=== PATIENT | female | born 1965 | race African-American/Black ===

== ENCOUNTER 2019-09-02 14:32 | Inpatient (IN) | payer BC ==
[2019-09-02] VITALS (9 sets, daily range): BP systolic 91–150; BP diastolic 46–88
[~2019-09-02] VITALS: Ht 160 cm; Wt 70.4 kg
[2019-09-02] MEDS ORDERED: morphine 4 MG/ML inj SYRINge IV ONE (15:40)
[2019-09-02] MEDS ORDERED: ondansetron/PF 4mg/2ml inj IV ONE ×2 (15:40→20:00)
[2019-09-02] MEDS ORDERED: piperacillin/tazo 4.5gm/100ml 100 ML IV ONE (16:00)
[2019-09-02] MEDS ORDERED: piperacillin/tazo 4.5gm/100ml 100 ML IV SCH (16:00)
[2019-09-02 16:29] LABS: BASOPHILS % (AUTO) 0.4 % (0-1); EOSINOPHILS # (AUTO) 0.1 X10'3 (0-0.9); EOSINOPHILS % (AUTO) 0.8 % (0-6); HEMATOCRIT 38.8 % (35.0-45.0); LYMPHOCYTES # (AUTO) 1.6 X10'3 (1.1-4.8); LYMPHOCYTES % (AUTO) 17.9 % (21-51); MEAN CORPUSCULAR HEMOGLOBIN 28.4 PG (27.0-31.0); MEAN CORPUSCULAR HGB CONC 33.6 g/dL (33.0-36.5); MEAN CORPUSCULAR VOLUME 84.6 FL (78-98); MEAN PLATELET VOLUME 10.2 FL (7.4-10.4); MONOCYTES # (AUTO) 1.1 X10'3 (0-0.9); NEUTROPHILS # (AUTO) 6.2 X10'3 (1.8-7.7); NEUTROPHILS % (AUTO) 68.9 % (42-75); PLATELET COUNT 227 X10'3 (140-440); RED BLOOD COUNT 4.59 X10'6 (4.20-5.60); RED CELL DISTRIBUTION WIDTH 13.7 % (11.5-14.5)
[2019-09-02 16:38] LABS: ALANINE AMINOTRANSFERASE 43 U/L (12-78); ALBUMIN 3.4 G/DL (3.4-5.0); ALBUMIN/GLOBULIN RATIO 0.8 (1.1-1.5); ALKALINE PHOSPHATASE 102 IU/L (46-116); AMYLASE 35 U/L (25-115); ANION GAP 5 (8-16); ASPARTATE AMINO TRANSFERASE 47 U/L (10-37); BILIRUBIN,TOTAL 0.4 MG/DL (0.1-1.0); BLOOD UREA NITROGEN 5 MG/DL (7-18); BUN/CREATININE RATIO 6.9 (6.6-38.0); CALCIUM 8.9 MG/DL (8.5-10.1); CHLORIDE 99 MMOL/L (99-107); CREATININE 0.72 MG/DL (0.40-0.90); GLUCOSE 109 MG/DL (70-104); LIPASE 68 U/L (73-393); POTASSIUM 3.6 MMOL/L (3.5-5.1); SODIUM 136 MMOL/L (135-145); TOTAL CARBON DIOXIDE 32.5 MMOL/L (24-32); TOTAL PROTEIN 7.8 G/DL (6.4-8.2); eGFR 84 ML/MIN
[2019-09-02] MEDS ORDERED: NO HOME MEDS PO (16:58)
[2019-09-02] MEDS ORDERED: BUPIVAcaine/PF 2.5 mg/ml (0.25%) 30ml vial ONE (17:16)
[2019-09-02] MEDS ORDERED: ceFAZolin 1000mg inj ONE (17:16)
[2019-09-02] MEDS ORDERED: bisacodyl 10mg suppository rectal RC PRN (17:35)
[2019-09-02] MEDS ORDERED: magnesium Cl slow-release 64mg tablet PO PRN (17:35)
[2019-09-02] MEDS ORDERED: acetaminophen 325mg tablet PO PRN ×2 (17:35)
[2019-09-02] MEDS ORDERED: magnesium 2GM in 50ml NS 50 ML IV PRN (17:35)
[2019-09-02] MEDS ORDERED: potassium Cl 20 mEq SR tablet PO PRN ×2 (17:35)
[2019-09-02] MEDS ORDERED: HYDROcodone/acetaminophen 5mg/325mg tablet PO PRN (17:35)
[2019-09-02] MEDS ORDERED: HYDROmorphone 1 mg/ml syringe IV PRN (17:35)
[2019-09-02] MEDS ORDERED: HYDROmorphone inj. 0.5 MG/0.5 ML DISP.SYRIN IV PRN (17:35)
[2019-09-02] MEDS ORDERED: ondansetron/PF 4mg/2ml inj IV PRN ×2 (17:35→17:45)
[2019-09-02] MEDS ORDERED: magnesium 4gm in 100ml NS 100 ML IV PRN (17:35)
[2019-09-02] MEDS ORDERED: HYDROcodone/acetaminophen 10/325mg tab PO PRN (17:35)
[2019-09-02] MEDS ORDERED: mag hydrox/Alum hydrox/simeth 30ml oral suspension PO PRN (17:35)
[2019-09-02] MEDS ORDERED: diphenhydrAMINE 50 mg/ml inj IV PRN (17:35)
[2019-09-02] MEDS ORDERED: metoclopramide 5 mg/ml inj IV PRN (17:35)
[2019-09-02] MEDS ORDERED: potassium CL 10mEq/100ml bag 100 ML IV PRN ×2 (17:35)
[2019-09-02] MEDS: piperacillin/tazo 3.375gm/50ml 50 ML IV SCH (17:35)
[2019-09-02] MEDS ORDERED: diphenhydrAMINE 25mg capsule PO PRN (17:35)
[2019-09-02] MEDS ORDERED: magnesium hydroxide 30ml (MOM) UD suspension PO PRN (17:35)
--- NOTE | 2019-09-02 17:35 | NUR ---
TO SURGERY PER TODD WITH ER TECHS, IN GOOD CONDITION, ACCOMPANIED BY FAMILY.
[2019-09-02] MEDS ORDERED: ringers solution, lacted 1,000 ML IV SCH (17:42)
[2019-09-02] MEDS ORDERED: proCHLORperazine 10 MG/2 ml inj IV PRN (17:45)
[2019-09-02] MEDS ORDERED: meperidine/PF 25mg/ml syringe IV PRN ×3 (17:45)
[2019-09-02] MEDS ORDERED: morphine 4 MG/ML inj SYRINge IV PRN ×2 (17:45)
[2019-09-02] MEDS ORDERED: sevoflurane 250ml liquid IH ONE (18:07)
[2019-09-02] MEDS ORDERED: labetalol 20mg/4ml (5mg/ml) syringe IV ONE (18:07)
[2019-09-02] MEDS ORDERED: ceFOXitin 2 GM ADDVANTGE BAG 50 ML IV ONE (18:11)
[2019-09-02] MEDS ORDERED: fentaNYL/PF 50MCG/1 ML 2ML syringe ONE (18:13)
[2019-09-02] MEDS ORDERED: midazolam 2 mg/2 ml injection ONE (18:22)
[2019-09-02] MEDS ORDERED: glycopyrrolate 0.2mg/ml inj ONE (18:58)
[2019-09-02] MEDS ORDERED: propofol inj 20 ML IV ONE (18:58)
[2019-09-02] MEDS ORDERED: dexamethasone sod phosphate 4mg/ml inj. ONE (18:58)
[2019-09-02] MEDS ORDERED: phenylephrine 10mg/ml inj. ONE (18:58)
[2019-09-02] MEDS ORDERED: LIDOcaine 2% (20mg/ml) 5ml vial ONE (18:58)
[2019-09-02] MEDS ORDERED: neostigmine methylsulfate 1 MG/ML 10ml vial ONE (18:58)
[2019-09-02] MEDS ORDERED: ondansetron/PF 4mg/2ml inj ONE (18:58)
[2019-09-02] MEDS ORDERED: rocuronium 10mg/ml inj IV ONE (18:58)
[2019-09-02] MEDS ORDERED: meperidine/PF 50mg/ml syringe ONE (19:05)
--- NOTE | 2019-09-02 19:16 | NUR ---
Received from OR via surgical bed, accompanied by Anesthesiologist Truong and report given by Anesthesiolgist. Lap sites with bandaids CDI. VS stable, O2 mask at 10L sats 100%. Pt responding to some questions. SCDs on. BLL.
[2019-09-02] MEDS: docusate sod 100mg capsule PO SCH (20:00)
[2019-09-02] MEDS: K and/or MAG REPLACEMENT MC SCH (20:00)
--- NOTE | 2019-09-02 20:06 | NUR ---
Report called to receiving nurse. Transferred via surgical bed. Belongings on bed with patient. Sofia STILES receiving nurse present at bedside. Special Issues communicated to receiving nurse. Lap sites remain CDI. Pt responsive, post op VS stable.
[2019-09-02] MEDS: ringers solution, lacted 1,000 ML IV SCH (20:16)
[2019-09-02] MEDS: HYDROmorphone/NS 1 mg/ml CADD 50 ML IV SCH ×3 (20:22→23:00)
[2019-09-02] MEDS ORDERED: temazepam 15mg capsule PO PRN (21:00)
[2019-09-02] MEDS: ceFOXitin 1 GM/D5W 50mL IVPB 50 ML IV SCH (22:07)
--- NOTE | 2019-09-02 22:49 | NUR ---
Patient in room [facility]. I have received report from LINSEY Mack and had the opportunity to ask questions and assume patient care. Addendum: 09/02/19 at 2250 by Sofia Wooten RN Amended: Links added.
[2019-09-03] VITALS: BP 104/59
[2019-09-03] MEDS: piperacillin/tazo 3.375gm/50ml 50 ML IV SCH ×2 (00:02→10:28)
[2019-09-03] MEDS: HYDROmorphone/NS 1 mg/ml CADD 50 ML IV SCH ×7 (01:00→13:00)
[2019-09-03] MEDS: ceFOXitin 1 GM/D5W 50mL IVPB 50 ML IV SCH ×3 (01:38→14:00)
[2019-09-03] MEDS: ringers solution, lacted 1,000 ML IV SCH ×2 (03:45→13:45)
[2019-09-03 05:34] LABS: BASOPHILS % (AUTO) 0.1 % (0-1); EOSINOPHILS % (AUTO) 0 % (0-6); HEMATOCRIT 34.6 % (35.0-45.0); HEMOGLOBIN 11.6 g/dl (12.0-16.0); LYMPHOCYTES # (AUTO) 0.5 X10'3 (1.1-4.8); MEAN CORPUSCULAR HEMOGLOBIN 28.7 PG (27.0-31.0); MEAN CORPUSCULAR HGB CONC 33.7 g/dL (33.0-36.5); MEAN CORPUSCULAR VOLUME 85.2 FL (78-98); MEAN PLATELET VOLUME 10.2 FL (7.4-10.4); MONOCYTES # (AUTO) 0.4 X10'3 (0-0.9); MONOCYTES % (AUTO) 5.5 % (2-12); NEUTROPHILS # (AUTO) 6.7 X10'3 (1.8-7.7); NEUTROPHILS % (AUTO) 88.4 % (42-75); PLATELET COUNT 196 X10'3 (140-440); RED BLOOD COUNT 4.06 X10'6 (4.20-5.60); WHITE BLOOD COUNT 7.5 X10'3 (4.5-11.0)
[2019-09-03 05:47] LABS: ALANINE AMINOTRANSFERASE 49 U/L (12-78); ALBUMIN 2.7 G/DL (3.4-5.0); ALBUMIN/GLOBULIN RATIO 0.7 (1.1-1.5); ALKALINE PHOSPHATASE 83 IU/L (46-116); ANION GAP 6 (8-16); ASPARTATE AMINO TRANSFERASE 54 U/L (10-37); BILIRUBIN,TOTAL 0.4 MG/DL (0.1-1.0); BLOOD UREA NITROGEN 6 MG/DL (7-18); BUN/CREATININE RATIO 6.9 (6.6-38.0); CALCIUM 8.4 MG/DL (8.5-10.1); CHLORIDE 102 MMOL/L (99-107); CREATININE 0.87 MG/DL (0.40-0.90); GLUCOSE 204 MG/DL (70-104); MAGNESIUM 2.1 MG/DL (1.5-2.4); POTASSIUM 4.1 MMOL/L (3.5-5.1); SODIUM 136 MMOL/L (135-145); TOTAL CARBON DIOXIDE 27.9 MMOL/L (24-32); TOTAL PROTEIN 6.6 G/DL (6.4-8.2); eGFR 82 ML/MIN
--- NOTE | 2019-09-03 06:29 | NUR ---
Problems reprioritized. Patient report given, questions answered & plan of care reviewed with LINSEY Herrera. Addendum: 09/03/19 at 0630 by Sofia Wooten RN Amended: Links added.
[2019-09-03 07:30] VITALS: BP 115/59
[2019-09-03] MEDS: docusate sod 100mg capsule PO SCH (07:34)
[2019-09-03] MEDS: K and/or MAG REPLACEMENT MC SCH (07:38)
[2019-09-03 11:52] VITALS: BP 98/59
[2019-09-03] MEDS ORDERED: CADD PCA waste documentation MC PRN (13:15)
[2019-09-03] MEDS ORDERED: AMOX500C2 PO (13:33)
[2019-09-03] MEDS ORDERED: HYDR-4353 PO (13:33)
--- NOTE | 2019-09-03 14:30 | NUR ---
Patient stable and appropriate for discharge home with mother and son. IV removed. All belongings taken from room. Pain medication prescription given to patient, Antibiotic script sent to [facility]. Discharge instructions given and reviewed with patient and family. Work note given to patient from
== END 2019-09-03 15:00 | disposition home or self-care (01) | DRG 419 ==
LOC: ER 14:34 → ED HOLD 17:31 → SUR 3N 20:10
PROVIDERS: ADMIT Family Medicine; ATTEND Family Medicine
PROC: 0FT44ZZ Resection of Gallbladder, Percutaneous Endoscopic Approach (ICD-10-PCS; principal; 2019-09-02 18:07)
DX: K80.12 Calculus of gallbladder with acute and chronic cholecystitis without obstruction (principal); R73.9 Hyperglycemia, unspecified; R74.0 Nonspecific elevation of levels of transaminase and lactic acid dehydrogenase [LDH]; K82.A1 Gangrene of gallbladder in cholecystitis
CPT/HCPCS: 96365; 96375; 99285; Z7506; Z7508; 36415; 80053; 82150; 83690; 83735; 85025; 85610; 87081; 93005; A4215; A4618; A7000; G0378; J0690; J0694; J1100; J1170; J2001; J2175; J2250; J2270; J2370; J2405; J2543; J2704; J2710; J3010; J3490; J7030; J7120